=== PATIENT | female | born 1955 | race Caucasian/White ===

== ENCOUNTER 2017-03-19 15:03 | Inpatient (IN) ==
[2017-03-19] MEDS ORDERED: PREDNISONE PO ONE ×2 (16:10→17:05)
--- NOTE | 2017-03-19 16:34 | Diag Imaging Result Doc PS360 ---
EXAM: CHEST-2 VIEWS HISTORY: copd TECHNIQUE: PA and lateral COMMENT: There is hyperlucency in the upper lung zones particularly the right apex consistent with emphysema. The inspiration is actually less optimal than on 11/05/2016. There is apparent atelectasis in the lung bases particularly the right lower lobe. The possibility of pneumonia cannot be excluded. Otherwise there has been no apparent change. IMPRESSION: COPD. Possible bronchopneumonia. Electronically signed by Dario Briggs 03/19/2017 4:32 PM
[2017-03-19 16:49] LABS: ALLEN TEST NO; BE 4.2 mmoll (-3.0-3.0); BLOOD TYPE ARTERIAL; DRAW SITE R BRACHIAL; METHB 1.4 % (0.0-1.5); O2(CT) 17.4 mL/dL (15.0-23.0); PCO2(98.6) 44 mmHg (35-45); PO2(98.6) 62 mmHg (60-100); SAMPLE BLOOD; SAO2 94.7 % (95.0-100.0); THB 13.5 g/dL (11.5-17.4); pH(98.6) 7.43 (7.35-7.45)
[2017-03-19 16:50] LABS: MODALITY CANNULA
[2017-03-19] MEDS ORDERED: NS 1,000 ML IV ONE (17:03)
[2017-03-19] MEDS ORDERED: ROCEPHIN 1 GM/NS 1 GM/50 ML IVPB IV ONE (17:04)
--- NOTE | 2017-03-19 17:10 | PROVIDER DOCUMENTATION ---
This chart was entered by Ciara Stokes Scribe, acting as scribe for Adair Carrillo MD. HPI-General Adult - General Chief Complaint: Shortness of Breath Stated Complaint: COPD Time Seen by Provider: 03/19/17 16:00 Source: patient Allergies/Adverse Reactions: Patient Allergies Allergy/AdvReac Type Severity Reaction Status Date / Time hydromorphone HCl * Allergy Intermediate RASH Verified 03/19/17 16:41 [From Dilaudid] codeine [Codeine] Allergy Mild RASH Verified 03/19/17 16:41 morphine Allergy Mild RASH Verified 03/19/17 16:41 tramadol Allergy Unknown Unknown Verified 03/19/17 16:41 hydrocodone [Hydrocodone] AdvReac Mild ITCHING Verified 03/19/17 16:41 acetaminophen AdvReac Unknown Unknown Verified 03/19/17 16:41 [From Darvocet-N 100] propoxyphene napsylate * AdvReac Unknown Unknown Verified 03/19/17 16:41 [From Darvocet-N 100] tramadol HCl * [From Ultram] AdvReac ITCHING Verified 03/19/17 16:41 Home Medications: Home Medication List Medication Instructions Recorded Confirmed Last Taken Type Hydroxyzine 12.5 mg PO BID PRN 12/17/13 03/19/17 03/18/17 History Cyanocobalamin [Vitamin B-12] 1,000 microgm PO QAM #0 tablet 09/27/15 03/19/17 03/19/17 03:30 Rx Albuterol 2.5MG/Ipratrop 0.5MG 3 ml INH RTQ4H #0 neb 08/08/16 03/19/17 03/19/17 12:30 Rx [Duoneb (A & A)] Benzonatate [Tessalon] 200 mg PO TID PRN PRN #0 capsule 08/08/16 03/19/17 Rx Fluticasone/Vilant 200/25 INH 1 puff INH RTDAILY #0 inhaler 11/01/16 03/19/17 03:30 Rx [Breo Ellipta 200/25 Mcg INH] Sucralfate [Carafate] 1 gm PO TID #0 tablet 11/01/16 03/19/1703/19/17 03:30 Rx Acetaminophen [Tylenol] 650 mg PO Q6H PRN PRN #0 tablet 11/05/16 03/19/17 Unknown Rx - History of Present Illness -Gen Adult Nature of Presenting Problems: Pt is a 61 year old female who came to the ED via EMS sent from Dr. Hairston's office due to COPD exasperation. Pt was not having trouble breathing. Location of Pain/Injury: reports: none Pain Radiation: reports: no radiation Quality of Pain: reports: none Severity: reports: mild Onset/Duration: reports: unsure Timing: reports: still present Context/Activities at Onset: reports: none Modifying Factors: improves with: nothing Associated Symptoms: reports: shortness of breath Similar Symptoms Previously?: Yes Recently seen or treated by another doctor?: Yes Review of Systems - Adult - REVIEW OF SYSTEMS - ADULT Constitutional: denies: chills, fever Eyes: reports: no symptoms reported Ears, Nose, Mouth & Throat: denies: ear pain, loose teeth Cardiovascular: reports: no symptoms reported Respiratory: reports: shortness of breath, wheezing. denies: dyspnea on exertion, pleurisy Gastrointestinal: denies: difficulty swallowing, nausea, vomiting Genitourinary: denies: discharge, hematuria Musculoskeletal: reports: no symptoms reported Integumentary: reports: no symptoms reported Neurological: reports: no symptoms reported Psychiatric: reports: no symptoms reported Endocrine: reports: no symptoms reported Hematologic/Lymphatic: reports: no symptoms reported Allergic/Immunologic: reports: no symptoms reported All Other Systems: Reviewed and Negative Past History - Adult - PAST MEDICAL HISTORY-ADULT Review of Records: reports: Nursing Assessment Review Major Childhood Illnesses: reports: denies history Cardiovascular: reports: hyperlipidemia Respiratory: reports: COPD Gastrointestinal: reports: denies history Obstetrical/Gynecological: reports: denies history Genitourinary: reports: denies history Musculoskeletal: reports: denies history Neurological: reports: denies history Endocrine/Immune: reports: denies history Other Conditions: reports: denies history - PRIOR SURGERIES/PROCEDURES Surgical/Procedure History: reports: appendectomy, hysterectomy, orthopedic ( extremity) (rotator cuff sx), joint replacement (Total knee replacement), back/ neck (lumbar sx, cervical spine sx) - IMMUNIZATION STATUS Childhood Immunizations: See Nurse Assessment Flu Vaccine: See Nurse Assessment - FAMILY HISTORY Family History: reviewed, not pertinent Physical Exam-General - PHYSICAL EXAM-ADULT Initial Vital Signs Reviewed: Yes - CONSTITUTIONAL General Appearance: appears well, alert, no apparent distress - EYES Eyes: PERRL/EOMI, pink conjunctivae - HEAD, EARS, NOSE, MOUTH & THROAT HENMT: normocephalic/atraumatic, moist mucous membranes - NECK Neck: non-tender - RESPIRATORY Respiratory: lungs clear, wheezing - CARDIOVASCULAR Cardiovascular: normal peripheral pulses, regular rate, rhythm - GASTROINTESTINAL (ABDOMEN) Abdominal Exam: normal bowel sounds, non tender, soft - MUSCULOSKELETAL Back Exam: normal inspection, no CVA tenderness Extremity: normal range of motion, non-tender - SKIN Integumentary: normal color, normal turgor - NEUROLOGIC Neurologic: grossly normal - PSYCHIATRIC Psych/Mental Status: normal mood/affect, normal thought content, normal thought process, oriented x 3 Progress - PLAN OF CARE/RESULTS Progress/Plan/Lab Results: Vital Signs - 8 hr 03/19/17 15:25 Temperature 98.7 F Pulse Rate 104 H Respiratory Rate 22 Blood Pressure 102/68 O2 Sat by Pulse Oximetry 98 Orders Category Date Time Status cxr [CHEST-2 VIEWS] [RAD] Stat Exams 03/19/17 16:09 Completed ABG [RESP] Routine Lab 03/19/17 16:09 Ordered CBC WITH ELECTRONIC DIFF [HEME] Stat Lab 03/19/17 16:08 Uncollected CMP [COMPREHENSIVE METABOLIC PANEL] [CHEM] Stat Lab 03/19/17 16:08 Uncollected UA NIMS W/REFLEX CULT [URINALYSIS] Stat Lab 03/19/17 16:09 Uncollected Prednisone Med 03/19/17 16:10 Discontinued 60 mg PO NOW ONE - REASSESSMENT Reassessment #1 Time Reassessed: 17:08 Status: improving - CONSULTS/PCP/HOSPITALIST Notification #1 *Consult/PCP/Hospitalist*: Dr Alfaro Time Discussed: 16:20 Consult Disposition: Admit (wants ABG, CXR rocephein/ levaquine/ routine orders) Departure - Departure Date of Disposition Decision: 03/19/17 Time of Disposition Decision: 17:09 DIAGNOSIS: COPD exacerbation Acute bronchitis Qualifiers: Bronchitis organism: other organism Qualified Code(s): J20.8 - Acute bronchitis due to other specified organisms Disposition: ADMITTED INPATIENT 09 Certified Medical Emergency: Emergent Condition: Stable - Critical Care Note This patient required my direct & personal management of CC.: No This chart was documented by the indicated scribe, (Ciara Stokes Scribe) and accurately reflects the services I performed and decisions made by me, Adair Carrillo MD, as attested by the provider's signature.
[2017-03-19] MEDS ORDERED: LEVAQUIN 750 MG/D5W 750 MG/150 ML IVPB IV SCH (17:15)
[2017-03-19 17:16] LABS: BASO% 0.2 % (0.0-0.8); EOS# 0.12 X1000 (0.0-0.7); EOS% 0.6 % (0.0-10.0); HEMATOCRIT 41.2 % (37.0-47.0); HEMOGLOBIN 13.3 g/dL (12.0-16.0); IMM GRAN# 0.07 X1000 (0.0-0.04); IMM GRAN% 0.3 % (0.0-0.5); LYMPH# 1.85 X1000 (1.2-3.4); LYMPH% 9.1 % (20.5-51.1); MANUAL DIFF NEEDED? YES; MCH 29.8 PG (27-31); MCHC 32.3 g/dL (33-37); MCV 92.2 FL (81-99); MONO# 2.54 X1000 (0.11-0.59); MONO% 12.5 % (1.7-9.3); NEUT% 77.3 % (42.2-75.2); PLT 218 X1000 (130-400); RBC 4.47 XMIL (4.2-5.4)
[2017-03-19 17:28] LABS: AGAP 11; ALBUMIN 3.7 g/dL (3.5-5.0); ALKALINE PHOSPHATASE 70 U/L (32-104); BUN 12 mg/dL (8-22); CALCIUM 8.5 mg/dL (8.8-10.2); CHLORIDE 97 mmol/L (98-107); COSMO 268; GOT 14 U/L (10-30); GPT 8 U/L (10-36); POTASSIUM 4.1 mmol/L (3.5-5.1); SODIUM 134 mmol/L (136-145); TCO2 26 mmol/L (25-35); TOTAL PROTEIN 6.9 g/dL (6.3-8.3)
[2017-03-19] MEDS ORDERED: TYLENOL PO PRN (18:23)
[2017-03-19] MEDS ORDERED: PROTONIX IV SCH (18:30)
[2017-03-19] MEDS ORDERED: SODIUM CHLORIDE 0.9% INJ SCH (18:30)
[2017-03-19] MEDS ORDERED: VANCOMYCIN IV PER PHARMACY MISC SCH (18:45)
[2017-03-19] MEDS: DUONEB (A & A) INH SCH ×2 (19:39→23:04)
[2017-03-19] MEDS: POTASSIUM CHLORIDE 10 MEQ in NS 1,000 ML IV SCH (20:07)
[2017-03-19] MEDS: PEPCID IV SCH (20:08)
[2017-03-19] MEDS: LEVAQUIN 500 MG/D5W 500 MG/100 ML IVPB IV SCH (20:08)
[2017-03-19] MEDS: SODIUM CHLORIDE 0.9% INJ SCH (20:08)
[2017-03-19] MEDS: LOVENOX SUBQ SCH (20:08)
[2017-03-19] MEDS ORDERED: VANCOMYCIN 1.8 GM in NS 250 ML IV ONE (21:00)
[2017-03-19] MEDS: HYDROXYZINE PO PRN (23:28)
[2017-03-20] MEDS: DUONEB (A & A) INH SCH ×6 (03:32→23:01)
--- NOTE | 2017-03-20 05:49 | EKG Report ---
Test Performed on : 03/19/2017 5:11:11 PM Test Reason : No Order in [employer] Blood Pressure : / mmHG Vent. Rate : 099 BPM Atrial Rate : 099 BPM P-R Int : 134 ms QRS Dur : 070 ms QT Int : 326 ms P-R-T Axes : 070 -07 075 degrees QTc Int : 418 ms Normal sinus rhythm. Septal infarct (cited on or before 26-OCT-2016) Abnormal ECG When compared with ECG of 03-NOV-2016 17:10, No significant change was found Unconfirmed Result
[2017-03-20] MEDS: SODIUM CHLORIDE 0.9% INJ SCH ×2 (06:24→18:26)
[2017-03-20] MEDS: PEPCID IV SCH ×2 (06:24→18:26)
[2017-03-20] MEDS: NORCO-5 PO PRN ×3 (06:39→23:10)
--- NOTE | 2017-03-20 07:44 | PROGRESS NOTE ---
DATE: 03/20/2017 SUBJECTIVE: Ms. Tran is doing fair. The patient still has cough with expectoration, headache, mild shortness of breath, mild nausea, epigastric discomfort. The patient received 60 mg of prednisone yesterday. I am going to hold on steroid today. No typical chest pain. Patient admitted with COPD exacerbation, acute on chronic respiratory failure, atypical chest pain. OBJECTIVE: Her vital signs noted. Neck supple. No JVD. Lungs: Bilateral expiratory wheezing. CVS: S1 and S2 heard. Abdomen soft, globular. Bowel sounds present. Mild epigastric tenderness. No guarding or rigidity. Extremities: No cyanosis, clubbing. No acute DVT. FISCAL AGENT: Alert, awake, able to move all 4 limbs. CONSIDERATION: 1. Chronic obstructive pulmonary disease exacerbation. 2. Chronic respiratory failure. 3. Gastritis. 4. Headache. I will start her on steroid from tomorrow. Continue antibiotics. GI and DVT prophylaxis. Repeat blood work tomorrow. Overall plan discussed with the patient. Continue symptomatic treatment. Dr. Marie will see the patient in my absence. cc: Gilbert Hairston MD
[2017-03-20] MEDS: CARAFATE PO SCH ×3 (09:47→16:53)
[2017-03-20] MEDS: VITAMIN B-12 PO SCH (09:47)
--- NOTE | 2017-03-20 09:55 | HISTORY AND PHYSICAL ---
INCOMPLETE REPORT-DICTATION BEGINS HERE CHIEF COMPLAINT: Shortness of breath. HISTORY OF PRESENT ILLNESS: Ms. Tran is a 61-year-old white female patient complaining of shortness of breath going on for a few days but worse since this morning. The patient claimed yesterday she mowed her yard. She got more short of breath. She did sleep with her oxygen on all night. This morning when she woke up, her O2 saturation was low. Patient did go to work. When she came home, her oxygen saturation was still low. The patient was significantly short of breath. She does have increasing cough, chest congestion, expectoration, wheezing, feverish feeling. The patient came to the office for evaluation. She had fever, some chills, significantly short of breath. Her oxygen saturation was low. We let the patient rest. Her O2 saturation did not improve. Started her on oxygen. Plan was to admit the patient to the hospital for COPD exacerbation and acute on chronic respiratory failure. The patient did not get any transportation to go to hospital. We did call ambulance. EMS took the patient to the hospital. The patient did have some chest pain. INCOMPLETE REPORT-DICTATION ENDS HERE cc: Gilbert Hairston MD
--- NOTE | 2017-03-20 09:55 | HISTORY AND PHYSICAL ---
CONTINUATION: The patient did have some chest pain, retrosternal, sharp pain, more of a pleuritic. She denied any hemoptysis, significantly diminished exercise tolerance. The patient did have some nausea and vomiting. The patient vomited Thursday. She denied any diarrhea. No dysuria or hematuria. The patient had history of urticaria for which she takes Atarax. No typical chest pain. She does have at times palpitation. No runny nose, stuffy nose, sinus drainage. No dysphagia or odynophagia. The patient does have at times epigastric discomfort and heartburn. No further history available at this time. ALLERGIES: Hydromorphone, codeine, morphine and tramadol. PAST MEDICAL HISTORY: COPD, chronic respiratory failure. Urticaria. Restless legs syndrome. Gastritis and reflux disease. PERSONAL HISTORY: Single. Quit smoking about a month ago. Denied alcohol or substance abuse. REVIEW OF SYSTEMS: As per HPI. FAMILY HISTORY: Significant for mother with hypertension, diabetes, coronary artery disease, dementia. The patient had a sister with coronary artery disease and lung disease. REVIEW OF SYSTEMS: As per HPI. PAST MEDICAL HISTORY: Patient had total knee replacement, rotator cuff tear surgery. She had low back surgery and neck surgery done. Cholecystectomy, appendectomy and hysterectomy. PHYSICAL EXAMINATION: GENERAL: Middle-aged white female patient, in moderate distress. VITAL SIGNS: In the emergency room, blood pressure 102/68, pulse 104. Respiration 22, temperature 98.7 degrees. SKIN: Normal turgor. No rash or petechiae. HEENT: Head atraumatic, normocephalic. [place] conjunctivae. Anicteric sclerae. Extraocular muscle movement normal. Fundus cannot be penetrated. Good oral hygiene. No tonsillopharyngeal congestion or exudate. Ears and nose benign. NECK: Supple. No JVD, thyromegaly or lymphadenopathy. CHEST: Bilateral expiratory wheezing. A few inspiratory crepitations. Minimal movement of accessory muscle of respiration. CARDIOVASCULAR: S1 and S2. Tachycardia. No gallop or thrill. ABDOMEN: Soft, globular. Bowel sounds present. No organomegaly or mass. EXTREMITIES: No cyanosis, clubbing. No acute DVT. MERCHANDISING INTERNSHIP: Alert, awake, oriented x3. No focalities. MUSCULOSKELETAL: Vague tenderness lumbosacral spine. X-RAY DATA: Patient's chest x-ray did reveal possible bronchopneumonia. CBC did reveal leukocytosis with left shift. Electrolytes fairly benign. Mild hyponatremia. Blood gas: PH 7.43, pCO2 44, PO2 62, O2 saturation was 94.7. CONSIDERATION: Acute exacerbation of chronic obstructive pulmonary disease, most likely due to bronchopneumonia. Acute on chronic respiratory failure. Gastritis and reflux disease. History of urticaria. Leukocytosis. PLAN: Admit the patient. IV antibiotics. Gentle hydration. Symptomatic care. DVT and GI prophylaxis. Overall plan discussed with the patient and she is in agreement. cc: Gilbert Hairston MD
[2017-03-20] MEDS: BREO ELLIPTA 200/25 MCG INH INH SCH (11:20)
[2017-03-20] MEDS: POTASSIUM CHLORIDE 10 MEQ in NS 1,000 ML IV SCH (12:58)
[2017-03-20] MEDS: VANCOMYCIN 1.35 GM in NS 250 ML IV SCH (16:46)
[2017-03-20] MEDS: HYDROXYZINE PO PRN (16:59)
[2017-03-20] MEDS: LOVENOX SUBQ SCH (18:26)
[2017-03-20] MEDS: LEVAQUIN 500 MG/D5W 500 MG/100 ML IVPB IV SCH (23:11)
[2017-03-21] MEDS: POTASSIUM CHLORIDE 10 MEQ in NS 1,000 ML IV SCH ×3 (03:02→21:38)
[2017-03-21] MEDS: DUONEB (A & A) INH SCH ×6 (03:58→22:48)
[2017-03-21] MEDS: HYDROXYZINE PO PRN ×2 (04:02→21:38)
[2017-03-21 06:41] LABS: MANUAL DIFF NEEDED? NO
[2017-03-21 06:49] LABS: BASO% 0.2 % (0.0-0.8); EOS# 0.21 X1000 (0.0-0.7); EOS% 1.7 % (0.0-10.0); HEMATOCRIT 42.9 % (37.0-47.0); HEMOGLOBIN 13.5 g/dL (12.0-16.0); IMM GRAN# 0.02 X1000 (0.0-0.04); IMM GRAN% 0.2 % (0.0-0.5); LYMPH# 1.02 X1000 (1.2-3.4); LYMPH% 8.4 % (20.5-51.1); MCH 29.3 PG (27-31); MCHC 31.5 g/dL (33-37); MCV 93.3 FL (81-99); MONO# 1.92 X1000 (0.11-0.59); MONO% 15.9 % (1.7-9.3); MPV 9.3 FL (7.4-10.4); NEUT% 73.6 % (42.2-75.2); PLT 180 X1000 (130-400)
[2017-03-21] MEDS: SODIUM CHLORIDE 0.9% INJ SCH ×3 (06:57→19:26)
[2017-03-21] MEDS: PEPCID IV SCH ×3 (06:58→19:26)
[2017-03-21] MEDS: BREO ELLIPTA 200/25 MCG INH INH SCH (07:34)
[2017-03-21 07:37] LABS: AGAP 14; ALBUMIN 3.1 g/dL (3.5-5.0); ALKALINE PHOSPHATASE 73 U/L (32-104); BUN 8 mg/dL (8-22); CALCIUM 8.1 mg/dL (8.8-10.2); CHLORIDE 101 mmol/L (98-107); COSMO 279; GOT 9 U/L (10-30); GPT 6 U/L (10-36); MAGNESIUM 1.7 mg/dL (1.5-2.7); POTASSIUM 4.2 mmol/L (3.5-5.1); SODIUM 141 mmol/L (136-145); TCO2 26 mmol/L (25-35); TOTAL BILIRUBIN 0.12 mg/dL (0.20-1.00); TOTAL PROTEIN 6.5 g/dL (6.3-8.3)
[2017-03-21] MEDS: PREDNISONE PO SCH (08:35)
[2017-03-21] MEDS: VANCOMYCIN 1.35 GM in NS 250 ML IV SCH (08:35)
[2017-03-21] MEDS: VITAMIN B-12 PO SCH (08:36)
[2017-03-21] MEDS: CARAFATE PO SCH ×3 (08:36→21:38)
[2017-03-21] MEDS: NORCO-5 PO PRN ×2 (08:44→17:43)
--- NOTE | 2017-03-21 14:10 | PROGRESS NOTE ---
DATE: 03/21/2017 SUBJECT: This covering for Dr. Hairston. 61-year-old white female admitted to the hospital for COPD exacerbation. No complains of productive cough with the streaky blood. She continues to have cough, shortness of breath and wheezing. REVIEW OF SYSTEMS: No chest pain, history of acid reflux symptoms, heartburn, indigestion. No swelling of feet. Neuro exam. No focal symptoms or weakness. Past medical history, past surgical history, medicines are reviewed. EXAMINATION: Vital signs: She is afebrile, pulse is 95, blood pressure 113/67, 94% pulse oximetry on 2 L nasal cannula. HEENT: Atraumatic, normocephalic. No anemia, no cyanosis. No jaundice. Neck: Supple. No neck rigidity. Cardiopulmonary: Wheezing bilaterally, distant heart sounds. Belly: Soft. No signs of peritonitis. Midline abdominal scar present. Extremities: No peripheral edema, cyanosis, clubbing. Neuro: No focal deficits. INVESTIGATIONS: CBC. White cell count 12, hematocrit 42, platelets 180,000. SMA 7, sodium 140, potassium 4.2, chloride 101, BUN 8, creatinine 0.6, calcium 8.1, magnesium 1.7. LFTs were normal. ASSESSMENT AND PLAN: 1. Acute chronic obstructive pulmonary disease exacerbation with productive cough. Repeat chest x-ray in the morning. Previous CT of the chest on 10/30/2016 is negative for any endobronchial lesions. In the meantime continue on oxygen, bronchodilators with albuterol Atrovent, Breo and continue the antibiotics with Levaquin 500 daily and IV vancomycin and p.o. prednisone. 2. Deep vein thrombosis prophylaxis with Lovenox. 3. Gastrointestinal prophylaxis with intravenous Pepcid and Carafate. 4. IV hydration with IV fluids. Repeat the blood gas, chest x-ray and CBC in the morning and will follow up. LEVEL OF DOCUMENTATION: 35 minutes. cc: MD Gilbert Altamirano MD
[2017-03-21] MEDS: LEVAQUIN 500 MG/D5W 500 MG/100 ML IVPB IV SCH ×2 (17:42→19:26)
[2017-03-21] MEDS: LOVENOX SUBQ SCH (17:44)
[2017-03-21] MEDS: MIRALAX PO SCH (21:38)
[2017-03-22] MEDS: VANCOMYCIN 1.35 GM in NS 250 ML IV SCH ×2 (03:26→22:48)
[2017-03-22] MEDS: DUONEB (A & A) INH SCH ×6 (03:55→23:02)
[2017-03-22 05:20] LABS: BLOOD TYPE ARTERIAL; DRAW SITE R BRACHIAL; O2(CT) 19.3 mL/dL (15.0-23.0); PO2(98.6) 86 mmHg (60-100); SAMPLE BLOOD; SAO2 98.2 % (95.0-100.0); THB 14.3 g/dL (11.5-17.4); pH(98.6) 7.37 (7.35-7.45)
[2017-03-22 05:22] LABS: MODALITY CANNULA; PCO2(98.6) 53 mmHg (35-45)
[2017-03-22 06:31] LABS: MANUAL DIFF NEEDED? NO
[2017-03-22] MEDS: NORCO-5 PO PRN ×3 (06:32→22:47)
[2017-03-22 06:44] LABS: BASO% 0.1 % (0.0-0.8); EOS# 0.18 X1000 (0.0-0.7); EOS% 1.7 % (0.0-10.0); HEMATOCRIT 40.5 % (37.0-47.0); IMM GRAN# 0.02 X1000 (0.0-0.04); IMM GRAN% 0.2 % (0.0-0.5); LYMPH# 1.86 X1000 (1.2-3.4); LYMPH% 17.6 % (20.5-51.1); MCHC 32.1 g/dL (33-37); MCV 93.3 FL (81-99); MONO# 1.45 X1000 (0.11-0.59); MONO% 13.7 % (1.7-9.3); MPV 8.8 FL (7.4-10.4); NEUT% 66.7 % (42.2-75.2); PLT 295 X1000 (130-400); RBC 4.34 XMIL (4.2-5.4)
[2017-03-22] MEDS: PEPCID IV SCH ×2 (06:58→18:36)
[2017-03-22] MEDS: SODIUM CHLORIDE 0.9% INJ SCH ×2 (06:58→18:36)
[2017-03-22] MEDS: BREO ELLIPTA 200/25 MCG INH INH SCH (07:50)
--- NOTE | 2017-03-22 08:08 | Diag Imaging Result Doc PS360 ---
EXAM: CHEST-2 VIEWS HISTORY: hypoxia TECHNIQUE: PA and lateral chest COMMENT: There is bullous emphysema in the right upper lobe. There is an ill-defined nodular opacity laterally in the mid right lung probably in the upper lobe which has not changed since 03/19/2017. This was not apparent at the time the previous study of 11/03/2016. There are ill-defined opacities in the lung bases which may be due to atelectasis or pneumonia. IMPRESSION: COPD with minimal bronchopneumonia particularly in the right lower lobe. Electronically signed by Dario Briggs 03/22/2017 8:06 AM
[2017-03-22] MEDS: CARAFATE PO SCH ×2 (08:43→13:28)
[2017-03-22] MEDS: VITAMIN B-12 PO SCH (08:43)
[2017-03-22] MEDS: PREDNISONE PO SCH (08:43)
[2017-03-22] MEDS: MIRALAX PO SCH ×2 (08:43→20:34)
[2017-03-22] MEDS ORDERED: LACTULOSE PO ONE (09:12)
--- NOTE | 2017-03-22 12:11 | PROGRESS NOTE ---
DATE: 03/22/2017 SUBJECTIVE: Patient complains of upper abdominal pain, acid reflux symptoms, persistent cough, productive. Sputum cultures have been sent. Constipated. REVIEW OF SYSTEMS: Upper abdominal discomfort. Acid reflux symptoms noted. OBJECTIVE: Vital signs: Temperature 97.7, pulse is 84, blood pressure 115/74, 2 L nasal cannula 98%. HEENT: Atraumatic, normocephalic. Pupils equal, reactive to light. Neck: Supple. No lymphadenopathy. No goiter. Chest: Bilateral wheezing. Heart: Sounds are regular. Abdomen: Belly is soft. No signs of peritonitis. Extremities: No peripheral edema, cyanosis, clubbing. Neurologic: No focal deficits. INVESTIGATIONS: Chest x-ray: Right lower lobe infiltrate. CBC: White cell count 10, hematocrit 40, platelets 295,000. ABG, pH is 7.37, pCO2 53, PO2 86 on 28%. Cardiac enzymes were normal. EKG is pending. ASSESSMENT AND PLAN: 1. Atypical chest pain. Follow up on EKG and cardiac enzymes. 2. Acid reflux symptoms. Continue on intravenous Pepcid and Maalox. 3. Constipation. MiraLAX and lactulose. 4. Chronic obstructive pulmonary disease exacerbation with right lower lobe pneumonia. Continue on IV vancomycin and Levaquin and prednisone. Follow up on sputum cultures. Continue on Breo. 5. Deep vein thrombosis prophylaxis with Lovenox. 6. Gastrointestinal prophylaxis with IV Pepcid. 7. Patient developed new problems, constipation and acid reflux symptoms. Will follow up. LEVEL DOCUMENTATION: 35 minutes. cc: MD Gilbert Altamirano MD
[2017-03-22] MEDS: POTASSIUM CHLORIDE 10 MEQ in NS 1,000 ML IV SCH (13:34)
[2017-03-22] MEDS: CARAFATE LIQUID PO SCH (16:24)
[2017-03-22] MEDS: ZOFRAN IV PRN (16:24)
[2017-03-22] MEDS: LEVAQUIN 500 MG/D5W 500 MG/100 ML IVPB IV SCH (18:36)
[2017-03-22] MEDS: LOVENOX SUBQ SCH (18:36)
[2017-03-22] MEDS: HYDROXYZINE PO PRN (20:34)
[2017-03-23] MEDS: POTASSIUM CHLORIDE 10 MEQ in NS 1,000 ML IV SCH (02:41)
[2017-03-23] MEDS: DUONEB (A & A) INH SCH ×6 (03:58→22:13)
[2017-03-23 06:37] LABS: MANUAL DIFF NEEDED? NO
[2017-03-23] MEDS: PEPCID IV SCH ×2 (06:51→18:43)
[2017-03-23] MEDS: SODIUM CHLORIDE 0.9% INJ SCH ×2 (06:51→18:43)
--- NOTE | 2017-03-23 06:55 | EKG Report ---
Test Performed on : 03/23/2017 06:17:23 AM Test Reason : Upper ABD. pain Blood Pressure : / mmHG Vent. Rate : 090 BPM Atrial Rate : 090 BPM P-R Int : 148 ms QRS Dur : 070 ms QT Int : 340 ms P-R-T Axes : 056 012 062 degrees QTc Int : 415 ms Normal sinus rhythm. Normal ECG When compared with ECG of 22-MAR-2017 11:13, (Unconfirmed) No significant change was found Confirmed by Noemí García MD ([id number]) on 03/23/2017 9:18:47 AM
[2017-03-23 07:01] LABS: BASO% 0.1 % (0.0-0.8); EOS# 0.28 X1000 (0.0-0.7); EOS% 3.1 % (0.0-10.0); HEMATOCRIT 40.5 % (37.0-47.0); HEMOGLOBIN 12.7 g/dL (12.0-16.0); IMM GRAN# 0.02 X1000 (0.0-0.04); IMM GRAN% 0.2 % (0.0-0.5); LYMPH# 1.94 X1000 (1.2-3.4); LYMPH% 21.4 % (20.5-51.1); MCH 29.6 PG (27-31); MCHC 31.4 g/dL (33-37); MCV 94.4 FL (81-99); MONO# 1.11 X1000 (0.11-0.59); MONO% 12.2 % (1.7-9.3); MPV 8.7 FL (7.4-10.4); PLT 315 X1000 (130-400); RBC 4.29 XMIL (4.2-5.4)
[2017-03-23] MEDS: BREO ELLIPTA 200/25 MCG INH INH SCH (07:38)
[2017-03-23] MEDS: PREDNISONE PO SCH (09:18)
[2017-03-23] MEDS: CARAFATE LIQUID PO SCH ×3 (09:19→17:40)
[2017-03-23] MEDS: MIRALAX PO SCH ×2 (09:19→21:56)
[2017-03-23] MEDS: VITAMIN B-12 PO SCH (09:20)
[2017-03-23] MEDS: NORCO-5 PO PRN ×2 (09:48→17:40)
[2017-03-23] MEDS: VANCOMYCIN 1.35 GM in NS 250 ML IV SCH ×2 (10:11→22:01)
[2017-03-23 10:27] LABS: AMYLASE 53 U/L (20-200); LIPASE 18 U/L (13-60)
--- NOTE | 2017-03-23 11:24 | Diag Imaging Result Doc PS360 ---
CT ABD/PELVIS W/ IV CONT ONLY - 03/23/2017 INDICATION: Abdominal pain TECHNIQUE: A CT dose reduction protocol was used. COMPARISON: 10/31/2016 FINDINGS: There is some infiltrate in the lower lobes bilaterally right greater than left. There is also some trace pleural effusion at the right lung base. There is advanced COPD in the lung bases. Heart size remains normal. Stable benign hypodense area at the anterior liver surface. Stable cholecystectomy clips. No biliary dilation. The pancreas, spleen, adrenals, and kidneys are normal. There is decrease in the size of the small herniated loop of small bowel in the right inguinal canal. This now just enters the internal inguinal os. There is no obstructive change here. Uterus is absent. Urinary bladder and rectum are normal. No bowel obstruction or inflammation. No free air or free fluid. There are moderate degenerative changes of the spine. No acute or suspicious bony lesion. IMPRESSION: 1. Bilateral lower lobe infiltrates compatible with pneumonia. Trace right effusion. 2. COPD. 3. Improvement in the small right inguinal hernia. No obstruction. Electronically signed by Matt Garcia 03/23/2017 11:22 AM
--- NOTE | 2017-03-23 15:50 | PROGRESS NOTE ---
DATE: 03/23/2017 HISTORY OF PRESENT ILLNESS: A 61-year-old white female, over the weekend. Complains of productive cough, hemoptysis and also severe upper abdominal pain, not able to tolerate, constipation. The nurses were really concerned. Several phone calls were made. REVIEW OF SYSTEMS: Denies any chest pain. Basically productive cough. Sputum cultures have been sent. Complains of abdominal pain. It is not relieving with PPI, Maalox, Carafate, [place]. She had a good bowel movement with laxatives. The pain is unbearable. Patient thinks something is wrong. The patient had gallbladder taken out. Patient was seen by Dr. Retana 3-4 months ago. I do not have the details. The patient had a workup done for atypical chest pain which includes EKG, normal sinus, and cardiac enzymes were normal. PAST MEDICAL HISTORY/PAST SURGICAL HISTORY: Reviewed. OBJECTIVE: Vitals: Temperature is 98 degrees, pulse is 89, blood pressure is 120/68, 2 L nasal cannula 97%. Input and output: Positive 520 mL. HEENT: Atraumatic, normocephalic. Pupils equal, react to light. TMs are normal. Nose and throat within normal limits. Neck: Supple. No lymphadenopathy. Chest: Bilateral wheezing. Heart: Sounds are regular. Abdomen: Belly is soft. Tender in the epigastric area. No signs of peritonitis. No guarding. No rigidity. Extremities: No peripheral edema. Neurologic: No obvious focal deficits. INVESTIGATIONS: CBC: White cell count 9. Hematocrit 40. Platelets 315,000. Cardiac enzymes x 2 negative. Amylase and lipase were normal. EKG on 03/23/2017, normal sinus. Nothing acute for ischemia or injury current. Sputum cultures are pending. Chest x-ray: Possible right bronchopneumonia. ASSESSMENT AND PLAN: 1. Acute chronic obstructive pulmonary disease exacerbation with pneumonia, currently receiving prednisone 20 mg daily, vancomycin, IV Levaquin. 2. Deep venous thrombosis prophylaxis with Lovenox. 3. Gastrointestinal prophylaxis with IV Pepcid. 4. Vitamin B12 deficiency, on replacement therapy. 5. Chronic obstructive pulmonary disease. Continue on bronchodilators which includes albuterol/Atrovent, Breo. We will also add Spiriva. 6. Upper abdominal pain. Ruled out for myocardial infarction. Status post cholecystectomy, previous esophagogastroduodenoscopy is negative by Dr. Retana. Amylase and lipase normal. We will get a CT scan of the abdomen and pelvis today. Continue symptomatic treatment. LEVEL OF DOCUMENTATION: 35 minutes. cc: MD Gilbert Altamirano MD
[2017-03-23] MEDS: LOVENOX SUBQ SCH (18:42)
[2017-03-23] MEDS: LEVAQUIN 500 MG/D5W 500 MG/100 ML IVPB IV SCH (18:44)
[2017-03-23] MEDS: ZOFRAN IV PRN (20:05)
[2017-03-23] MEDS: HYDROXYZINE PO PRN (22:00)
[2017-03-24] MEDS: NORCO-5 PO PRN ×3 (00:13→18:03)
[2017-03-24] MEDS: POTASSIUM CHLORIDE 10 MEQ in NS 1,000 ML IV SCH ×4 (02:16→23:29)
[2017-03-24] MEDS: DUONEB (A & A) INH SCH ×6 (03:34→22:58)
[2017-03-24 04:29] LABS: ALLEN TEST YES; BE 10.2 mmoll (-3.0-3.0); BLOOD TYPE ARTERIAL; DRAW SITE R RADIAL; METHB 0.9 % (0.0-1.5); O2(CT) 16.3 mL/dL (15.0-23.0); PO2(98.6) 75 mmHg (60-100); SAMPLE BLOOD; SAO2 97.6 % (95.0-100.0); THB 12.1 g/dL (11.5-17.4); pH(98.6) 7.41 (7.35-7.45)
[2017-03-24 04:31] LABS: MODALITY CANNULA
[2017-03-24 04:32] LABS: PCO2(98.6) 58 mmHg (35-45)
[2017-03-24] MEDS: SODIUM CHLORIDE 0.9% INJ SCH ×2 (06:04→18:02)
[2017-03-24] MEDS: PEPCID IV SCH ×2 (06:04→18:01)
--- NOTE | 2017-03-24 07:36 | Diag Imaging Result Doc PS360 ---
EXAM: CHEST-2 VIEWS HISTORY: hypoxia TECHNIQUE: COMPARISON: 03/22/2017 FINDINGS: The lungs are hyperexpanded. There is an increased AP diameter to the chest. Pulmonary vessels are small. Heart is not enlarged. There are increased interstitial markings in the lower left lung. IMPRESSION: 1.Emphysema 2.No improvement in the left basilar infiltrate or fibrosis. Electronically signed by Zachary Pan 03/24/2017 7:34 AM
[2017-03-24] MEDS: BREO ELLIPTA 200/25 MCG INH INH SCH (07:50)
[2017-03-24] MEDS: SPIRIVA INH SCH (07:50)
[2017-03-24 08:39] LABS: AGAP 13; ALBUMIN 2.9 g/dL (3.5-5.0); ALKALINE PHOSPHATASE 75 U/L (32-104); BUN 13 mg/dL (8-22); CALCIUM 8.4 mg/dL (8.8-10.2); CHLORIDE 100 mmol/L (98-107); COSMO 282; GOT 11 U/L (10-30); GPT 9 U/L (10-36); POTASSIUM 4.2 mmol/L (3.5-5.1); SODIUM 142 mmol/L (136-145); TCO2 29 mmol/L (25-35); TOTAL BILIRUBIN < 0.10 mg/dL (0.20-1.00)
[2017-03-24] MEDS: MIRALAX PO SCH ×2 (09:01→20:32)
[2017-03-24] MEDS: CARAFATE LIQUID PO SCH ×3 (09:03→17:15)
[2017-03-24] MEDS: PREDNISONE PO SCH (09:04)
[2017-03-24] MEDS: VITAMIN B-12 PO SCH (09:04)
[2017-03-24] MEDS: SOLU-MEDROL IV SCH ×2 (14:11→20:32)
[2017-03-24] MEDS ORDERED: VANCOMYCIN 1.35 GM in NS 250 ML IV SCH (16:00)
[2017-03-24] MEDS: LOVENOX SUBQ SCH (18:02)
[2017-03-24] MEDS: LEVAQUIN 500 MG/D5W 500 MG/100 ML IVPB IV SCH (19:03)
[2017-03-25] MEDS: SOLU-MEDROL IV SCH (02:35)
--- NOTE | 2017-03-25 03:33 | PROGRESS NOTE ---
DATE: 03/24/2017 SUBJECTIVE: The patient is doing better. She is getting IV antibiotics. She is getting omeprazole for abdominal pain. There is no evidence of small bowel obstruction as noted on the CT scan. Her vital signs are stable. ABG shows pH 7.41, pCO2 of 58, PO2 was 75. She has emphysema, left basal infiltrate, which is about the same. -7 cc: MD Gilbert Alvares MD
[2017-03-25] MEDS: DUONEB (A & A) INH SCH ×2 (03:41→07:24)
[2017-03-25] MEDS: PEPCID IV SCH (06:59)
[2017-03-25] MEDS: SODIUM CHLORIDE 0.9% INJ SCH (07:00)
[2017-03-25] MEDS ORDERED: PRILOSEC PO SCH (07:00)
[2017-03-25] MEDS: NORCO-5 PO PRN (07:01)
[2017-03-25] MEDS ORDERED: PREDNISONE PO ONE (07:06)
[2017-03-25] MEDS: BREO ELLIPTA 200/25 MCG INH INH SCH (07:24)
[2017-03-25] MEDS: SPIRIVA INH SCH (07:24)
--- NOTE | 2017-03-25 07:56 | DISCHARGE SUMMARY ---
ADMISSION DATE: 03/19/2017 DISCHARGE DATE: 03/25/2017 FINAL DISCHARGE DIAGNOSES: 1. Acute on chronic respiratory failure. 2. Bronchopneumonia. 3. Chronic obstructive pulmonary disease exacerbation. 4. Gastritis. 5. Chest-wall pain. 6. Restless legs syndrome. 7. Degenerative disk disease. HISTORY OF PRESENT ILLNESS: Ms. Tran is a 61-year-old white female patient admitted with chest congestion, cough, expectoration, feverish feeling, shortness of breath. The patient does have underlying COPD and chronic respiratory failure. The patient had increasing shortness of breath. She was hypoxemic in my office. The patient evaluated, treated and admitted. The patient was so short of breath I had to call EMS, brought to the emergency room, stabilized and admitted. The patient was treated with steroids, IV antibiotics, pulmonary toilet, bronchodilator treatment. Her clinical condition stabilized and improved. The patient is feeling much better. Patient had leukocytosis which did improve. Her shortness of breath improved. Cough and congestion improved. Patient claims this morning she is feeling much better and I am planning to discharge her home today. PHYSICAL EXAMINATION: VITAL SIGNS: Her vital signs reviewed. Lungs: Bilateral good air entry present. Occasional wheezing. CVS: S1 and S2 heard. Abdomen: Soft, globular. Bowel sounds present. Mild epigastric tenderness. No guarding or rigidity. Extremities: No cyanosis, clubbing. No acute DVT. STATISTICS MANAGER: Alert, awake. Able to move all 4 limbs. The patient had a CT scan of the abdomen and pelvis done because of epigastric pain which did reveal bilateral lower lobe infiltrate compatible with pneumonia, COPD, improvement in the small right inguinal hernia. Clinically patient is doing much better. Her chest x-ray done yesterday did reveal COPD. No improvement in the left basilar infiltrate and/or fibrosis. Clinically patient is doing much better. Her white count was improving. The patient is afebrile. Vital signs stable. Lungs: Bilateral good air entry present. Occasional wheezing. Overall patient is doing better. I am planning to discharge her home today. CBC done on March 23 was stable. Electrolytes done yesterday were fairly benign. Patient had cardiac isoenzymes done. Those were benign. ProBNP was negative. Overall patient received maximum benefit of hospitalization and I am planning to discharge patient home. Advised her to use oxygen, take rest. I am going to discharge her on doxycycline, tapering dose of prednisone. Continue Prilosec and Carafate. Nebulizer treatment. Fall precaution. Follow up with me in a week. In case of more distress, call us back or go to emergency room. cc: Gilbert Hairston MD
[2017-03-25 07:58] VITALS: BP 126/73
[2017-03-25] MEDS: MIRALAX PO SCH (08:57)
[2017-03-25] MEDS: VITAMIN B-12 PO SCH (08:58)
[2017-03-25] MEDS: CARAFATE LIQUID PO SCH (08:58)
== END 2017-03-25 11:07 | disposition home or self-care (01) ==
LOC: SUPCPDRO → ED 15:03 → 3N 16:37
PROVIDERS: ADMIT Internal Medicine; ATTEND Internal Medicine

== ENCOUNTER 2019-10-18 13:52 | Inpatient (IN) ==
[2019-10-18] MEDS: SOLU-MEDROL IV SCH ×2 (15:49→23:51)
[2019-10-18] MEDS: LEVAQUIN 500 MG/D5W 500 MG/100 ML IVPB IV SCH (15:50)
[2019-10-18] MEDS: SODIUM CHLORIDE 0.9% INJ SCH (15:50)
[2019-10-18] MEDS: NS 1,000 ML IV SCH (15:50)
[2019-10-18] MEDS: PROTONIX IV SCH (15:50)
--- NOTE | 2019-10-18 16:03 | EKG Report ---
Test Performed on : 10/18/2019 3:41:11 PM Test Reason : COPD Blood Pressure : / mmHG Vent. Rate : 082 BPM Atrial Rate : 082 BPM P-R Int : 142 ms QRS Dur : 072 ms QT Int : 366 ms P-R-T Axes : 084 -04 078 degrees QTc Int : 427 ms Normal sinus rhythm. Low voltage QRS Borderline ECG When compared with ECG of 17-FEB-2018 10:53, No significant change was found Confirmed by Lucho PEREZ, Jamie Ulrich ([id number]) on 10/20/2019 7:29:32 AM
[2019-10-18 16:20] LABS: ALLEN TEST YES; BE 3.2 mmoll (-3.0-3.0); BLOOD TYPE ARTERIAL; HCO3-(ACT) 27.3 mmoll (20.0-26.0); METHB 0.8 % (0.0-1.5); O2(CT) 18.1 mL/dL (15.0-23.0); O2HB 92.7 % (95.0-99.0); PO2(98.6) 64 mmHg (60-100); SAMPLE BLOOD; SAO2 95.4 % (95.0-100.0); THB 13.9 g/dL (11.5-17.4); pH(98.6) 7.36 (7.35-7.45)
[2019-10-18 16:22] LABS: MODALITY CANNULA; PCO2(98.6) 53 mmHg (35-45)
[2019-10-18 16:36] LABS: BASO# 0.17 X1000 (0.0-0.2); BASO% 2.4 % (0.0-0.8); EOS% 1.4 % (0.0-10.0); HEMATOCRIT 44.8 % (37.0-47.0); HEMOGLOBIN 13.9 g/dL (12.0-16.0); IMM GRAN# 0.03 X1000 (0.0-0.04); IMM GRAN% 0.4 % (0.0-0.5); LYMPH# 1.72 X1000 (1.2-3.4); LYMPH% 24.7 % (20.5-51.1); MCH 28.9 PG (27-31); MCV 93.1 FL (81-99); MONO# 1.26 X1000 (0.11-0.59); MONO% 18.1 % (1.7-9.3); MPV 9.1 FL (7.4-10.4); NEUT# 3.67 X1000 (1.4-6.5); PLT 200 X1000 (130-400); RBC 4.81 XMIL (4.2-5.4); RDW 14.5 % (11.5-14.5); WBC 6.95 X1000 (4.8-10.8)
[2019-10-18 16:49] LABS: AGAP 14; ALB/GLOB RATIO 1.4; ALBUMIN 3.7 g/dL (3.5-5.0); ALKALINE PHOSPHATASE 79 U/L (32-104); BUN 8 mg/dL (8-22); CALCIUM 8.3 mg/dL (8.8-10.2); CHLORIDE 102 mmol/L (98-107); CK PROFILE 99 U/L (24-173); COSMO 281; CREATININE 0.6 mg/dL (0.5-0.9); ESTIMATED GFR > 60; GLUCOSE 98 mg/dL (70-104); GOT 18 U/L (10-30); GPT 10 U/L (10-36); SODIUM 142 mmol/L (136-145); TCO2 26 mmol/L (25-35); TOTAL BILIRUBIN 0.23 mg/dL (0.20-1.00); TOTAL PROTEIN 6.3 g/dL (6.3-8.3)
[2019-10-18 17:02] LABS: BANDS 4 % (0-1); LYMPHS 36 % (21-51); MONO 6 % (1-9); NRBC 1 % (0-0); SEGS 54 % (42-75)
[2019-10-18 17:03] LABS: ANISOCYTOSIS 2+
[2019-10-18] MEDS ORDERED: VANCOMYCIN 1,900 MG in NS 500 ML IV ONE (18:00)
[2019-10-18] MEDS ORDERED: DUONEB (A & A) INH SCH (19:30)
[2019-10-18 19:46] LABS: URINE SOURCE CLEAN CATCH
[2019-10-18 19:50] LABS: BILIRUBIN URINE NEGATIVE (NEGATIVE); BLOOD URINE NEGATIVE (NEGATIVE); COLOR YELLOW; GLUCOSE URINE NEGATIVE (NEGATIVE); KETONE URINE NEGATIVE (NEGATIVE); LEUKOCYTES URINE SMALL (NEGATIVE); NITRITE URINE NEGATIVE (NEGATIVE); PROTEIN URINE TRACE mg/dL (NEGATIVE); SP GRAVITY URINE 1.016; TURBIDITY URINE CLEAR (CLEAR); UROBILINOGEN URINE NORMAL (NORMAL)
[2019-10-18 19:52] LABS: UR EPITHELIAL CELLS <10 /HPF (<10); URINE BACTERIA NEGATIVE /HPF; URINE RBC <10 /HPF (<10); URINE WBC <10 /HPF (<10)
--- NOTE | 2019-10-18 19:54 | HISTORY AND PHYSICAL ---
CHIEF COMPLAINT: Shortness of breath. HISTORY OF PRESENT ILLNESS: Ms. Tran is a 63-year-old, white female patient, known case of severe COPD, on home oxygen and nebulizer treatment, not doing well since yesterday. Complaining of chest congestion, cough, increasing shortness of breath, decreased exercise tolerance. The patient claims she was getting short of breath walking across the room. She was scared of even going to the bathroom and staying by herself because of her shortness of breath and coughing. Patient did have scratchy throat, feverish feeling, chest soreness when she coughs. The patient came to the office for evaluation. The patient was in mild to moderate respiratory distress. I evaluated the patient and decided to admit her for further care. She denied any leg swelling or symptoms suggestive of DVT or pulmonary embolism. The patient was complaining of a strong odor to her urine, urinary frequency, and urgency, and at times mild dysuria. No diarrhea, blood, or mucus in the stool, at times constipation. No typical chest pain. Occasional palpitations. The patient was feeling fatigued, tired, and no energy. No dysphagia or odynophagia. Occasional dull headache. Vague epigastric pain and spasm. No heat or cold intolerance. No focal numbness, tingling, weakness. The patient does have chronic low back pain. The patient claimed her depression was getting better. No further history available at this time. ALLERGIES: Hydromorphone, codeine, morphine, and tramadol. PAST MEDICAL HISTORY: 1. Advanced COPD. 2. Chronic hypoxemic respiratory failure. 3. Hyperlipidemia. 4. Hiatal hernia. PAST SURGICAL HISTORY: 1. Hysterectomy. 2. Cholecystectomy. 3. Neck surgery. 4. Back surgery. 5. Cataract surgery. SOCIAL HISTORY: Single. Not smoking lately. Denied alcohol or substance abuse. Independent in activities of daily living. FAMILY HISTORY: Significant for coronary artery disease, hypertension, hyperlipidemia. REVIEW OF SYSTEMS: As per HPI, otherwise noncontributory. PHYSICAL EXAMINATION: GENERAL: Middle-aged white female patient in moderate distress. VITAL SIGNS: Blood pressure 116/75, pulse 80, respiration rate 14, temperature 99.2 degrees. SKIN: Senile turgor. No rash or petechiae. HEAD: Atraumatic, normocephalic. EYES: [place] conjunctivae. Anicteric sclerae. Extraocular muscle movement normal. Fundus cannot be penetrated. EARS, NOSE, THROAT: Good oral hygiene. No tonsillopharyngeal congestion or exudate. Ears and nose benign. NECK: Supple. No JVD, thyromegaly or lymphadenopathy. CHEST: Bilateral good air entry present. Bilateral expiratory wheezing. No movement of accessory muscles of respiration at rest. CARDIOVASCULAR: S1 and S2 heard. No gallop or thrill. ABDOMEN: Soft, globular. Bowel sounds present. EXTREMITIES: No cyanosis, clubbing. No acute DVT. CAMP DINING ROOM ATTENDANT: Alert, awake, able to move all 4 limbs. LABORATORY DATA: WBC count 6.95, hemoglobin 13.9, hematocrit 44.8, platelet count 200,000. Electrolytes: PH 7.36, pCO2 53, pO2 was 64. This was done on 2 L via nasal cannula. Her electrolytes were benign. ProBNP was 208. CONSIDERATION: Exacerbation of chronic obstructive pulmonary disease, most likely due to bronchitis. Chest x-ray, official result, is pending. Other problems include: 1. Gastritis and reflux disease. 2. Hiatal hernia. 3. Chronic respiratory failure. 4. History of urticaria, on Atarax. PLAN: 1. Admit patient. 2. Intravenous antibiotics. 3. Gentle hydration. 4. Bronchodilator treatment. 5. Steroid. Overall plan discussed at length with the patient and she is in agreement. cc: Gilbert Hairston MD
[2019-10-18] MEDS: DUONEB (A & A) INH SCH ×2 (20:21→23:49)
[2019-10-18] MEDS: ATIVAN PO SCH (21:14)
--- NOTE | 2019-10-18 21:40 | Diag Imaging Result Doc PS360 ---
EXAM: CHEST-2 VIEWS INDICATION: COPD TECHNIQUE: 2 views COMPARISON: 03/03/2018 FINDINGS: There is stable hyperinflation indicating COPD. The lungs are grossly clear. There is no discrete pleural fluid collection or pneumothorax. The cardiomediastinal silhouette and central vasculature are grossly unremarkable. IMPRESSION: Stable COPD changes. No definite acute chest pathology by plain radiograph. Electronically signed by Xavier Henderson 10/18/2019 9:37 PM
[2019-10-19] MEDS: NS 1,000 ML IV SCH ×2 (05:37→16:04)
[2019-10-19] MEDS: LOVENOX SUBQ SCH (05:57)
--- NOTE | 2019-10-19 07:23 | PROGRESS NOTE ---
DATE: 10/19/2019 SUBJECTIVE: Ms. Tran admitted with COPD exacerbation. The patient does have cough with scanty sputum production. No high-grade fever or chills. The patient does get short of breath with undue exertion. No nausea or vomiting. No diarrhea. Denied any typical chest pain. PHYSICAL EXAMINATION: Vital Signs: Noted. Blood pressure 117/71, pulse 80, respirations 16, temperature 97.5 degrees. Skin: No rash or petechiae. Head: Atraumatic, normocephalic. [place] conjunctivae. Anicteric sclerae. Extraocular muscle movement normal. Fundus cannot be penetrated. Good oral hygiene. Neck: Supple. No JVD. Lungs: Bilateral good air entry present. CVS: S1 and S2 heard. Abdomen: Soft, nontender. Bowel sounds present. MANAGER FUNCTIONAL: Alert, awake, able to move all 4 limbs. LABORATORY DATA: The patient's urinalysis did reveal small leukocytosis, otherwise benign. Blood gas revealed mild hypercarbic respiratory failure. We had a hard time starting her intravenous yesterday. CONSIDERATION: 1. Chronic obstructive pulmonary disease exacerbation. 2. Hypercarbic respiratory failure. 3. Gastritis and reflux disease. 4. History of urticaria. Will continue current treatment. Close observation. Lab and medication noted. Overall plan discussed with the patient, and she is in agreement. cc: Gilbert Hairston MD
[2019-10-19] MEDS: DUONEB (A & A) INH SCH ×5 (07:47→22:59)
[2019-10-19 08:18] LABS: BASO# 0.22 X1000 (0.0-0.2); BASO% 3.9 % (0.0-0.8); HEMATOCRIT 48.2 % (37.0-47.0); HEMOGLOBIN 14.8 g/dL (12.0-16.0); IMM GRAN# 0.02 X1000 (0.0-0.04); IMM GRAN% 0.4 % (0.0-0.5); LYMPH# 1.18 X1000 (1.2-3.4); LYMPH% 21.1 % (20.5-51.1); MCH 28.5 PG (27-31); MCHC 30.7 g/dL (33-37); MCV 92.9 FL (81-99); MONO# 0.29 X1000 (0.11-0.59); MONO% 5.2 % (1.7-9.3); MPV 9.3 FL (7.4-10.4); NEUT# 3.89 X1000 (1.4-6.5); NEUT% 69.4 % (42.2-75.2); PLT 198 X1000 (130-400); RBC 5.19 XMIL (4.2-5.4); RDW 14.1 % (11.5-14.5); RETIC% 0.65 % (0.8-2.1); RETIC-HE 30.4 PG (28.2-36.6)
[2019-10-19 08:23] LABS: AGAP 12; BUN 10 mg/dL (8-22); CALCIUM 8.4 mg/dL (8.8-10.2); CHLORIDE 100 mmol/L (98-107); COSMO 277; CREATININE 0.5 mg/dL (0.5-0.9); ESTIMATED GFR > 60; GLUCOSE 133 mg/dL (70-104); POTASSIUM 4.2 mmol/L (3.5-5.1); SODIUM 138 mmol/L (136-145); TCO2 26 mmol/L (25-35); TOTAL BILIRUBIN 0.17 mg/dL (0.20-1.00); TOTAL PROTEIN 6.9 g/dL (6.3-8.3)
[2019-10-19 08:24] LABS: ALBUMIN 3.5 g/dL (3.5-5.0); ALKALINE PHOSPHATASE 79 U/L (32-104); GOT 17 U/L (10-30); GPT 10 U/L (10-36); TOTAL IRON 80 ug/dL (49-151)
[2019-10-19 08:51] LABS: LYMPHS 18 % (21-51); MONO 6 % (1-9); SEGS 70 % (42-75)
[2019-10-19 09:01] LABS: FREE T4 1.02 ng/dL (0.93-1.70); TSH 0.38 uIUmL (0.27-4.20)
[2019-10-19] MEDS: BREO ELLIPTA 200/25 MCG INH INH SCH (11:23)
[2019-10-19] MEDS: SOLU-MEDROL IV SCH ×3 (12:25→23:16)
[2019-10-19] MEDS: VANCOMYCIN 1,600 MG in NS 250 ML IV SCH (12:39)
[2019-10-19] MEDS ORDERED: BLISTEX MEDICATED BERRY LIP BALM TOP PRN (12:41)
[2019-10-19] MEDS: LEVAQUIN 500 MG/D5W 500 MG/100 ML IVPB IV SCH (16:02)
[2019-10-19] MEDS: SODIUM CHLORIDE 0.9% INJ SCH (16:03)
[2019-10-19] MEDS: PROTONIX IV SCH (16:03)
[2019-10-19] MEDS: ATARAX PO PRN (21:07)
[2019-10-19] MEDS: ATIVAN PO SCH (21:08)
[2019-10-20] MEDS: SOLU-MEDROL IV SCH (06:10)
[2019-10-20] MEDS: VANCOMYCIN 1,600 MG in NS 250 ML IV SCH (06:10)
[2019-10-20] MEDS: LOVENOX SUBQ SCH (06:10)
--- NOTE | 2019-10-20 07:39 | PROGRESS NOTE ---
DATE: 10/20/2019 SUBJECTIVE: Ms. Tran is doing fair. The patient does have cough. No fever or chills. Denied any nausea or vomiting. No high-grade fever, chills. At times, wheezing. OBJECTIVE: Vital Signs: Noted. Neck: Supple. No JVD. Lungs: Bilateral occasional wheezing. Cardiovascular: S1 and S2 heard. Abdomen: Soft, nontender. Bowel sounds present. ROAD MECHANIC: Alert, awake. Able to move all 4 limbs. LABORATORY DATA: Lab data and chest x-ray noted. IMPRESSION: Patient admitted with chronic obstructive pulmonary disease exacerbation. She does have gastritis, history of urticaria, clinically doing better. We will continue current treatment. Close observation. PLAN: Overall plan discussed with the patient. I am going to stop Solu-Medrol. Start her on prednisone from afternoon. Continue IV antibiotics. If clinical condition permits, we will plan discharging patient home soon. cc: Gilbert Hairston MD
[2019-10-20] MEDS: DUONEB (A & A) INH SCH ×5 (07:40→22:55)
[2019-10-20] MEDS: BREO ELLIPTA 200/25 MCG INH INH SCH (07:40)
[2019-10-20] MEDS ORDERED: VANCOMYCIN IV PER PHARMACY MISC SCH (08:30)
[2019-10-20] MEDS: TESSALON PO PRN (10:58)
[2019-10-20] MEDS ORDERED: PREDNISONE PO ONE (14:00)
[2019-10-20] MEDS ORDERED: TYLENOL PO PRN (15:05)
[2019-10-20] MEDS: LEVAQUIN 500 MG/D5W 500 MG/100 ML IVPB IV SCH (15:26)
[2019-10-20] MEDS: PROTONIX IV SCH (15:27)
[2019-10-20] MEDS: SODIUM CHLORIDE 0.9% INJ SCH (17:44)
[2019-10-20] MEDS: ATIVAN PO SCH (21:39)
[2019-10-21] MEDS: VANCOMYCIN 1,600 MG in NS 250 ML IV SCH ×2
[2019-10-21] MEDS: LOVENOX SUBQ SCH (06:13)
--- NOTE | 2019-10-21 07:32 | Diag Imaging Result Doc PS360 ---
EXAM: CHEST-PORTABLE HISTORY: sob TECHNIQUE: Single view COMPARISON: 10/18/2019 FINDINGS: The lungs are hyperexpanded. The heart is not enlarged. The vessels are not distended. There are no infiltrates. No effusion identified. IMPRESSION: Emphysema Electronically signed by Zachary Pan 10/21/2019 7:30 AM
[2019-10-21] MEDS: BREO ELLIPTA 200/25 MCG INH INH SCH (07:46)
[2019-10-21] MEDS: DUONEB (A & A) INH SCH ×3 (07:46→15:25)
[2019-10-21] MEDS ORDERED: PREDNISONE PO SCH (09:00)
[2019-10-21 09:18] LABS: BASO# 0.02 X1000 (0.0-0.2); BASO% 0.2 % (0.0-0.8); EOS# 0.01 X1000 (0.0-0.7); EOS% 0.1 % (0.0-10.0); HEMATOCRIT 44.1 % (37.0-47.0); HEMOGLOBIN 13.5 g/dL (12.0-16.0); LYMPH# 2.21 X1000 (1.2-3.4); LYMPH% 25.5 % (20.5-51.1); MCH 28.7 PG (27-31); MCHC 30.6 g/dL (33-37); MCV 93.6 FL (81-99); MONO# 1.15 X1000 (0.11-0.59); MONO% 13.3 % (1.7-9.3); NEUT# 5.28 X1000 (1.4-6.5); NEUT% 60.9 % (42.2-75.2); PLT 235 X1000 (130-400); RBC 4.71 XMIL (4.2-5.4); RDW 14.4 % (11.5-14.5); WBC 8.67 X1000 (4.8-10.8)
[2019-10-21 09:39] LABS: AGAP 9; ALB/GLOB RATIO 1.1; ALBUMIN 3.1 g/dL (3.5-5.0); ALKALINE PHOSPHATASE 61 U/L (32-104); BUN 15 mg/dL (8-22); CALCIUM 7.9 mg/dL (8.8-10.2); CHLORIDE 102 mmol/L (98-107); COSMO 286; CREATININE 0.6 mg/dL (0.5-0.9); ESTIMATED GFR > 60; GLUCOSE 100 mg/dL (70-104); GOT 21 U/L (10-30); GPT 17 U/L (10-36); POTASSIUM 3.4 mmol/L (3.5-5.1); SODIUM 143 mmol/L (136-145); TCO2 32 mmol/L (25-35); TOTAL BILIRUBIN < 0.15 mg/dL (0.20-1.00); TOTAL PROTEIN 5.8 g/dL (6.3-8.3)
[2019-10-21] MEDS: TESSALON PO PRN (10:07)
[2019-10-21] MEDS ORDERED: KLOR-CON PO ONE (10:57)
[2019-10-21] MEDS: ATARAX PO PRN (13:17)
[2019-10-21 15:32] VITALS: BP 119/73
[2019-10-21] MEDS: PROTONIX IV SCH (16:18)
[2019-10-21] MEDS: SODIUM CHLORIDE 0.9% INJ SCH (16:19)
[2019-10-21] MEDS: LEVAQUIN 500 MG/D5W 500 MG/100 ML IVPB IV SCH (16:19)
--- NOTE | 2019-10-21 21:08 | DISCHARGE SUMMARY ---
ADMISSION DATE: 10/18/2019 DISCHARGE DATE: 10/21/2019 FINAL DISCHARGE DIAGNOSIS: 1. Chronic obstructive pulmonary disease exacerbation. 2. Chronic hypercapnic respiratory failure. 3. Gastritis and reflux disease. 4. Hyperlipidemia. 5. Hiatal hernia. 6. Back pain. 7. Hypokalemia. 8. Urticaria. 9. Anxiety. HISTORY: Ms. Tran is a 63-year-old white female patient admitted with chest congestion, cough, expectoration, wheezing, shortness of breath, feverish feeling, not responding to her outpatient treatment. The patient was getting anxious and nervous. I evaluated patient in the office, admitted her for further care. HOSPITAL COURSE: Patient was treated with IV steroid, nebulizer treatment, pulmonary toilet, IV antibiotics. Her clinical condition gradually improved and stabilized. The patient did have episode of cough and wheezing spell. At times she was getting very anxious and nervous. The patient also had some itching spell, which she was describing due to urticaria. We treated her symptomatically. Her clinical condition improved, stable. I repeated blood work and x-ray today, which also were being stable. The patient was being nervous staying by herself at home at times. The patient is not smoking. I advised her to take medicine regularly. Follow up with me next week. OBJECTIVE: Vital signs noted. NECK: Is supple. No JVD. Lungs: Bilateral good air entry present. Occasional wheezing. CVS: S1 and S2 heard. Abdomen: Soft, nontender. Bowel sounds present EXTREMITIES: No cyanosis, clubbing. No acute DVT. DIRECT CHILL CASTER: Alert, awake, able to move all 4 limbs. LABORATORY DATA: Done today, hemoglobin 13.5, hematocrit 44.1, WBC count 8.67, platelet count 235,000. Her blood gas on admission, pH 7.36, PCO2 53, PO2 was 64. Electrolytes done today, her potassium was 3.4, which I gave her extra potassium. Calcium 7.9, bilirubin less than 0.15, total protein 5.8, albumin 3.1. Urinalysis was benign. Blood culture negative. Urine culture was no growth. Chest x-ray done today was also COPD, otherwise benign. Overall discharge condition satisfactory. I am going to discharge her home on Levaquin, tapering dose of prednisone. Continue bronchodilator treatment. Follow up with me next week. In case of more distress, call us back or go to the emergency room. cc: Gilbert Hairston MD
[2019-10-22] MEDS ORDERED: PROTONIX PO SCH (07:00)
== END 2019-10-21 16:33 | disposition home or self-care (01) | DRG 191 ==
LOC: DIRADM 13:52 → 3N 14:54
PROVIDERS: ADMIT Internal Medicine; ATTEND Internal Medicine